=== PATIENT | male | born 1960 | race Caucasian/White ===

== ENCOUNTER 2020-08-19 13:27 | Outpatient (CLI) | payer MEDICARE ==
[2020-08-19] MEDS ORDERED: ASPI81TA45 PO (14:12)
[2020-08-19] MEDS ORDERED: OXYC20TA2 PO (14:12)
[2020-08-19] MEDS ORDERED: CYAN1TAB29 PO (14:12)
[2020-08-19] MEDS ORDERED: METF10007 PO (14:12)
[2020-08-19] MEDS ORDERED: OMEP-110 PO (14:12)
[2020-08-19] MEDS ORDERED: MULT-658 PO (14:12)
[2020-08-19] MEDS ORDERED: CHOL10003 PO (14:12)
[2020-08-19] MEDS ORDERED: SIMV20TA19 PO (14:12)
[2020-08-19] MEDS ORDERED: CLON0.1T22 PO (14:12)
[2020-08-19] MEDS ORDERED: ATEN50TA41 PO (14:12)
== END 2020-08-19 23:59 | disposition home or self-care (01) ==
LOC: EDSEX → STAR 13:27
PROVIDERS: ATTEND Internal Medicine Gastroenterology
DX: Z02.9 Encounter for administrative examinations, unspecified (principal)

== ENCOUNTER 2020-08-22 11:02 | Day surgery (SDC) | payer MEDICARE ==
[2020-08-19 14:57] LABS: ALANINE AMINOTRANSFERASE 86 U/L (12-78); ALBUMIN 3.8 g/dL (3.4-5.0); ANION GAP 3 mmol/L (5-15); CALCIUM 8.7 mg/dL (8.5-10.1); CHLORIDE 106 mmol/L (98-107); CREATININE 0.88 mg/dL (0.55-1.02)
[2020-08-19 14:59] LABS: ALKALINE PHOSPHATASE 129 U/L (45-117); BILIRUBIN,TOTAL 0.5 mg/dL (0.2-1.0); TOTAL PROTEIN 7.5 g/dL (6.4-8.2)
[~2020-08-22] VITALS: Ht 177.8 cm; Wt 163.6 kg
[~2020-08-22 11:02] MED LIST: ASPI81TA45 PO; ATEN50TA41 PO; CHOL10003 PO; CLON0.1T22 PO; CYAN1TAB29 PO; METF10007 PO; MULT-658 PO; OMEP-110 PO; OXYC20TA2 PO; SIMV20TA19 PO
[2020-08-22] MEDS ORDERED: CHLORHEXIDINE 15 ML UDC PO ONE (12:00)
[2020-08-22] MEDS ORDERED: LACTATED RINGERS 1,000 ML IV SCH (12:00)
[2020-08-22] MEDS ORDERED: OMNIPAQUE 350 MG/ML, 50 ML BOTTLE ONE (12:19)
[2020-08-22] MEDS ORDERED: SUCCINYLCHOLINE 20 MG/ML, 10ML ONE (12:56)
[2020-08-22] MEDS ORDERED: ONDANSETRON 2MG/ML, 2ML ONE (12:56)
[2020-08-22] MEDS ORDERED: ROCURONIUM 10 MG/ML,10ML ONE (12:56)
[2020-08-22] MEDS ORDERED: PROPOFOL 50 ML ONE (12:58)
[2020-08-22] MEDS ORDERED: FENTANYL PF 250 MCG/5ML ONE (12:58)
[2020-08-22] MEDS ORDERED: EPHEDRINE 50 MG/ML, 1ML IVPush PRN (13:30)
[2020-08-22] MEDS ORDERED: EPHEDRINE 50 MG/ML, 1ML IM PRN (13:30)
[2020-08-22] MEDS ORDERED: PROMETHAZINE 25 MG/ML, 1ML IVPush PRN (13:30)
[2020-08-22] MEDS ORDERED: DIPHENHYDRAMINE 50 MG/ML, 1ML IVPush PRN (13:30)
[2020-08-22] MEDS ORDERED: DIAZEPAM 5 MG/ML, 2ML IVPush PRN (13:30)
[2020-08-22] MEDS ORDERED: ONDANSETRON 2MG/ML, 2ML IVPush PRN (13:30)
[2020-08-22] MEDS ORDERED: FENTANYL PF 100 MCG/2ML IV PRN (13:30)
[2020-08-22] MEDS ORDERED: LABETALOL 5MG/ML, 20ML IV PRN (13:30)
[2020-08-22] MEDS ORDERED: MEPERIDINE/PF 25MG/0.5ML IVPush PRN (13:30)
[2020-08-22] MEDS ORDERED: FENTANYL PF 100 MCG/2ML ONE (13:59)
[2020-08-22] MEDS ORDERED: OXYcodone 5 MG/5 ML ORAL.SOL UDC ONE (13:59)
[2020-08-22] MEDS ORDERED: OXYcodone 5 MG/5 ML ORAL.SOL UDC PO PRN (14:30)
== END 2020-08-22 15:10 | disposition home or self-care (01) ==
LOC: EDSEX 11:02 → OUT 11:02
PROVIDERS: ATTEND Internal Medicine Gastroenterology
DX: K80.50 Calculus of bile duct without cholangitis or cholecystitis without obstruction (principal); T85.858A Stenosis due to other internal prosthetic devices, implants and grafts, initial encounter; Y83.8 Other surgical procedures as the cause of abnormal reaction of the patient, or of later complication, without mention of misadventure at the time of the procedure; K29.50 Unspecified chronic gastritis without bleeding; K31.89 Other diseases of stomach and duodenum; M19.90 Unspecified osteoarthritis, unspecified site; I10 Essential (primary) hypertension; G47.30 Sleep apnea, unspecified; F17.210 Nicotine dependence, cigarettes, uncomplicated; F12.90 Cannabis use, unspecified, uncomplicated; Z88.0 Allergy status to penicillin; Z20.828 Contact with and (suspected) exposure to other viral communicable diseases; Z20.822 Contact with and (suspected) exposure to COVID-19; Z98.890 Other specified postprocedural states; Z90.49 Acquired absence of other specified parts of digestive tract; Z79.899 Other long term (current) drug therapy; Z72.89 Other problems related to lifestyle
CPT/HCPCS: 36415; 43239; 43264; 43275; 74328; 80053; 82962; 88305; 93005; C1769; J0330; J2405; J2704; J3010; J7120; Q9967; U0003